=== PATIENT | female | born 1975 | race Caucasian/White ===

== ENCOUNTER 2025-05-03 10:35 | Emergency (ER) | payer BC | END 2025-05-03 12:21 | disposition home or self-care (01) | LOC: EEVIPCON 10:35 → CSHERS 10:35 | DX: S02.2XXA Fracture of nasal bones, initial encounter for closed fracture (principal); S09.90XA Unspecified injury of head, initial encounter; T14.8XXA Other injury of unspecified body region, initial encounter; Y04.8XXA Assault by other bodily force, initial encounter | CPT/HCPCS: 70450; 70486 ==